=== PATIENT | female | born 1975 | race African-American/Black ===

== ENCOUNTER 2016-11-17 14:11 | Emergency (ER) | payer MEDICAID ==
[~2016-11-17] VITALS: Ht 167.6 cm; Wt 77.0 kg
[~2016-11-17 14:11] MED LIST: ALBU2.5V13 NEB; Acyclovir PO; DEXTL PO; LEVO500T15 PO; METH4TAB17 PO
[2016-11-17 18:25] VITALS: BP 116/72
== END 2016-11-17 18:43 | disposition home or self-care (01) ==
LOC: ER 18:03
DX: B00.1 Herpesviral vesicular dermatitis (principal); B00.9 Herpesviral infection, unspecified; K13.0 Diseases of lips; J45.909 Unspecified asthma, uncomplicated; M19.90 Unspecified osteoarthritis, unspecified site; Z79.899 Other long term (current) drug therapy
CPT/HCPCS: 99283

== ENCOUNTER 2017-02-27 12:47 | Emergency (ER) | payer MEDICAID ==
[~2017-02-27] VITALS: Ht 154.9 cm; Wt 81.0 kg
[2017-02-27 17:33] LABS: CLARITY URINE CLEAR (CLEAR); COLOR URINE YELLOW (YELLOW); GLUCOSE URINE NEGATIVE (NEGATIVE); KETONES URINE NEGATIVE (NEGATIVE); LEUKOCYTE ESTERASE URINE NEGATIVE (NEGATIVE); NITRITE URINE NEGATIVE (NEGATIVE); OCCULT BLOOD URINE NEGATIVE (NEGATIVE); PROTEIN URINE NEGATIVE (NEGATIVE)
[2017-02-27] MEDS ORDERED: HYDROCODONE/APAP 7.5/325MG 1 TAB TABLET PO ONE (18:00)
[2017-02-27 18:03] LABS: HEMATOCRIT. 40.5 % (36.0-48.0); HEMOGLOBIN. 13.5 g/dL (12.0-16.0); MEAN CORPUSCULAR HEMOGLOBIN 30.2 pg (28.0-32.0); MEAN CORPUSCULAR VOLUME 90.8 fL (81.0-99.0); MEAN PLATELET VOLUME 8.5 fl (7.4-10.4); PLATELET 251 x1000/uL (130-400); RED BLOOD CELL COUNT 4.46 mill/uL (4.2-5.4); RED CELL DISTRIBUTION WIDTH 15.6 % (11.6-14.6)
[2017-02-27 18:08] LABS: CHLORIDE 104 mEq/L (98-107)
[2017-02-27 18:15] LABS: CARBON DIOXIDE 27 mEq/L (21-32)
[2017-02-27 18:51] LABS: PLATELET ESTIMATE NORMAL
[2017-02-27 20:26] VITALS: BP 110/62
== END 2017-02-27 20:26 | disposition home or self-care (01) ==
LOC: ER 17:10
DX: M54.12 Radiculopathy, cervical region (principal); R60.9 Edema, unspecified; M19.90 Unspecified osteoarthritis, unspecified site; J45.909 Unspecified asthma, uncomplicated; G89.29 Other chronic pain; Z88.2 Allergy status to sulfonamides
CPT/HCPCS: 36415; 72040; 80053; 81003; 81025; 83690; 85025; 93005; 99285; Z7610

== ENCOUNTER 2017-12-21 13:13 | Emergency (ER) | payer MEDICAID ==
[~2017-12-21] VITALS: Ht 154.9 cm; Wt 79.0 kg
[~2017-12-21 13:13] MED LIST changes: -LEVO500T15 PO; +LEVO500T2 PO
[2017-12-21 13:58] VITALS: BP 125/77
[2017-12-21] MEDS ORDERED: IPRATROPIUM BROMIDE (0.02%) 0.5MG/2.5ML NEB HHN STA (14:40)
[2017-12-21] MEDS ORDERED: ALBUTEROL (0.083%) 2.5MG/3ML NEB HHN STA ×2 (14:40→16:22)
[2017-12-21] MEDS ORDERED: PREDNISONE 20MG TABLET PO STA (14:40)
[2017-12-21] MEDS ORDERED: ALBUTEROL (0.083%) 2.5MG/3ML NEB ONE (16:39)
== END 2017-12-21 18:58 | disposition home or self-care (01) ==
LOC: ER 14:23
DX: J45.901 Unspecified asthma with (acute) exacerbation (principal); Z88.2 Allergy status to sulfonamides
CPT/HCPCS: 71045; 81025; 94640; 99284; J7512; J7611

== ENCOUNTER 2018-10-13 12:50 | Emergency (ER) | payer MEDICAID ==
[~2018-10-13] VITALS: Ht 154.9 cm; Wt 74.0 kg
[2018-10-13 19:27] VITALS: BP 140/74
[2018-10-13] MEDS ORDERED: ACETAMINOPHEN 325MG TABLET PO ONE (19:30)
== END 2018-10-13 19:39 | disposition home or self-care (01) ==
LOC: ER 13:15
DX: J18.9 Pneumonia, unspecified organism (principal); J45.909 Unspecified asthma, uncomplicated; Z88.2 Allergy status to sulfonamides; Z79.899 Other long term (current) drug therapy
CPT/HCPCS: 71045; 81025; 99283

== ENCOUNTER 2018-10-14 10:22 | Inpatient (IN) | payer MEDICAID ==
[~2018-10-14] VITALS: Ht 154.9 cm; Wt 73.9 kg
[2018-10-14] MEDS ORDERED: ALBUTEROL (0.083%) 2.5MG/3ML NEB HHN STA (11:11)
[2018-10-14] MEDS ORDERED: KETOROLAC 60MG/2ML VIAL IM STA (11:11)
[2018-10-14] MEDS ORDERED: IPRATROPIUM BROMIDE (0.02%) 0.5MG/2.5ML NEB HHN STA (11:11)
[2018-10-14] MEDS ORDERED: METHYLPREDNISOLONE SOD SUCC 125 MG/2 ML VIAL IM STA (11:11)
[2018-10-14] MEDS ORDERED: CEFTRIAXONE SODIUM 1 G/VIAL IM ONE (11:15)
[2018-10-14] MEDS ORDERED: LIDOCAINE HCL 1% 20ML VIAL (Pyxis) INJ INFIL ONE (11:15)
[2018-10-14 12:08] LABS: CLARITY URINE CLOUDY (CLEAR); COLOR URINE YELLOW (YELLOW); KETONES URINE TRACE (NEGATIVE); LEUKOCYTE ESTERASE URINE NEGATIVE (NEGATIVE); NITRITE URINE NEGATIVE (NEGATIVE); OCCULT BLOOD URINE NEGATIVE (NEGATIVE); PROTEIN URINE TRACE (NEGATIVE); SPECIFIC GRAVITY URINE 1.031 (1.005-1.030)
[2018-10-14 13:30] LABS: BASOPHILS % 0.4 % (0.0-2.0); CHLORIDE 111 mEq/L (98-107); EOSINOPHILS % 0.3 % (0.0-5.0); HEMATOCRIT. 39.3 % (36.0-48.0); HEMOGLOBIN. 12.9 g/dL (12.0-16.0); LYMPHOCYTES % 9.1 % (20.0-50.0); MEAN CORPUSCULAR HEMOGLOBIN 30.3 pg (28.0-32.0); MEAN CORPUSCULAR VOLUME 92.1 fL (81.0-99.0); MEAN PLATELET VOLUME 8.6 fl (7.4-10.4); MONOCYTES % 5.6 % (2.0-8.0); NEUTROPHILS % 84.6 % (40.0-76.0); PLATELET 225 x1000/uL (130-400); RED BLOOD CELL COUNT 4.27 mill/uL (4.2-5.4); RED CELL DISTRIBUTION WIDTH 14.3 % (11.6-14.6)
[2018-10-14] MEDS ORDERED: AZITHROMYCIN 500 MG in DEXT 5% WATER 250 ML IV SCH (15:15)
[2018-10-14] MEDS ORDERED: POTASSIUM CHLORIDE 20MEQ TABLET SR PO ONE (16:30)
[2018-10-14 16:55] LABS: PARTIAL THROMBOPLASTIN TIME 25.8 sec (23.4-31.0)
[2018-10-14] MEDS ORDERED: IPRATROPIUM BROMIDE (0.02%) 0.5MG/2.5ML NEB HHN NR (20:15)
[2018-10-14] MEDS ORDERED: ALBUTEROL (0.083%) 2.5MG/3ML NEB HHN SCH (20:15)
[2018-10-15] MEDS ORDERED: GABA-290 PO (08:46)
[2018-10-15] MEDS ORDERED: METH2.5T PO (08:46)
[2018-10-15] MEDS ORDERED: HYDR-4009 PO (08:51)
[2018-10-15] MEDS ORDERED: PRED5TAB PO (08:51)
[2018-10-15 09:00] VITALS: BP 124/69
[2018-10-15] MEDS ORDERED: ACETAMINOPHEN 325MG TABLET PO PRN (09:15)
[2018-10-15] MEDS ORDERED: ONDANSETRON HCL 4MG/2ML INJ IV PRN (09:15)
[2018-10-15] MEDS: GUAIFENESIN 600MG ER TABLET PO SCH ×2 (09:48→20:33)
[2018-10-15] MEDS: CEFTRIAXONE 1 G PREMIX 50 ML IV SCH (11:36)
[2018-10-15 11:48] LABS: *AMPHETAMINES SCREEN URINE NEGATIVE (NEGATIVE)
[2018-10-15 11:49] LABS: *BARBITURATES SCREEN URINE NEGATIVE (NEGATIVE); *BENZODIAZEPINES SCREEN URINE NEGATIVE (NEGATIVE); *COCAINE SCREEN URINE NEGATIVE (NEGATIVE); METHADONE URINE SCREEN NEGATIVE (NEGATIVE); OPIATES URINE SCREEN NEGATIVE (NEGATIVE); PHENCYCLIDINE URINE SCREEN NEGATIVE (NEGATIVE)
[2018-10-15 12:00] VITALS: BP 128/80
[2018-10-15 12:06] LABS: CANNABINOID URINE SCREEN PRESUMTIVE POSITIVE (NEGATIVE)
[2018-10-15] MEDS: GUAIFENESIN-DM 200MG-20MG/10ML UDC PO PRN ×3 (12:38→18:26)
[2018-10-15 16:00] VITALS: BP 139/55
[2018-10-15] MEDS: BUDESONIDE 0.5MG/2ML NEB HHN SCH ×2 (16:57→20:51)
[2018-10-15] MEDS: IPRATROPIUM/ALBUTEROL 0.5-3(2.5)MG/3ML NEB HHN PRN ×2 (16:57→20:51)
[2018-10-15 19:58] VITALS: BP 104/66
[2018-10-15] MEDS: GABAPENTIN 300MG CAPSULE PO SCH (20:33)
[2018-10-15] MEDS ORDERED: MEDICATION NOT ON FORMULARY EA (Gabapentin 600 MG) PO SCH (21:00)
[2018-10-16] VITALS: BP 97/51
[2018-10-16 04:00] VITALS: BP 101/60
[2018-10-16 05:47] LABS: BASOPHILS % 0.5 % (0.0-2.0); EOSINOPHILS % 0.2 % (0.0-5.0); HEMATOCRIT. 36.3 % (36.0-48.0); LYMPHOCYTES % 19.3 % (20.0-50.0); MEAN CORPUSCULAR HEMOGLOBIN 30.5 pg (28.0-32.0); MEAN PLATELET VOLUME 8.2 fl (7.4-10.4); MONOCYTES % 7.8 % (2.0-8.0); NEUTROPHILS % 72.2 % (40.0-76.0); PLATELET 238 x1000/uL (130-400); RED BLOOD CELL COUNT 3.95 mill/uL (4.2-5.4); RED CELL DISTRIBUTION WIDTH 14.4 % (11.6-14.6)
[2018-10-16 06:49] LABS: CHLORIDE 108 mEq/L (98-107)
[2018-10-16 08:00] VITALS: BP 107/71
[2018-10-16] MEDS: GUAIFENESIN 600MG ER TABLET PO SCH ×2 (08:57→21:56)
[2018-10-16] MEDS ORDERED: METHOTREXATE SODIUM 2.5 MG PO SCH (09:00)
[2018-10-16] MEDS: GUAIFENESIN-DM 200MG-20MG/10ML UDC PO PRN (09:08)
[2018-10-16] MEDS: BUDESONIDE 0.5MG/2ML NEB HHN SCH ×2 (09:59→21:07)
[2018-10-16] MEDS: IPRATROPIUM/ALBUTEROL 0.5-3(2.5)MG/3ML NEB HHN PRN ×3 (09:59→15:40)
[2018-10-16] MEDS: CEFTRIAXONE 1 G PREMIX 50 ML IV SCH (10:12)
[2018-10-16 12:00] VITALS: BP 96/54
[2018-10-16 16:00] VITALS: BP 100/66
[2018-10-16 20:00] VITALS: BP 101/64
[2018-10-16] MEDS: GABAPENTIN 300MG CAPSULE PO SCH (21:56)
[2018-10-17] VITALS: BP 105/68
[2018-10-17 04:00] VITALS: BP 97/67
[2018-10-17] MEDS: BUDESONIDE 0.5MG/2ML NEB HHN SCH (07:59)
[2018-10-17 08:00] VITALS: BP 108/69
[2018-10-17] MEDS: GUAIFENESIN 600MG ER TABLET PO SCH (09:04)
[2018-10-17] MEDS: CEFTRIAXONE 1 G PREMIX 50 ML IV SCH (10:07)
[2018-10-17 11:23] VITALS: BP 108/69
[2018-10-18] MEDS ORDERED: METHOTREXATE SODIUM 2 . 5MG TABLET PO SCH (09:00)
[2018-10-18] MEDS ORDERED: PREDNISONE 5MG TABLET PO SCH (09:00)
== END 2018-10-17 12:46 | disposition home or self-care (01) | DRG 139 ==
LOC: ER 10:37 → 7WST 16:21 → ENRESERV 10-15 07:22
PROVIDERS: ADMIT Internal Medicine; ATTEND Internal Medicine
DX: J18.9 Pneumonia, unspecified organism (principal); E44.1 Mild protein-calorie malnutrition; E87.8 Other disorders of electrolyte and fluid balance, not elsewhere classified; M06.9 Rheumatoid arthritis, unspecified; E87.6 Hypokalemia; E66.9 Obesity, unspecified; J45.909 Unspecified asthma, uncomplicated; F12.90 Cannabis use, unspecified, uncomplicated; Z88.2 Allergy status to sulfonamides; Z79.2 Long term (current) use of antibiotics; Z79.899 Other long term (current) drug therapy; Z71.3 Dietary counseling and surveillance; Z68.30 Body mass index [BMI] 30.0-30.9, adult
CPT/HCPCS: 36415; 71045; 80048; 80305; 93970; 94640; 96365; 96372; 99285; J0456; J0696; J1885; J2930; J3490; J7050; J7060; J7611; J7620; J7626; J8610

== ENCOUNTER 2019-09-05 13:37 | Emergency (ER) | payer MEDICAID ==
[~2019-09-05] VITALS: Ht 170.2 cm; Wt 74.0 kg
[~2019-09-05 13:37] MED LIST changes: -Acyclovir PO; +GABA-290 PO; +HYDR-4009 PO; -LEVO500T2 PO; +METH2.5T PO; -METH4TAB17 PO
[2019-09-05 14:10] VITALS: BP 133/77
== END 2019-09-05 18:57 | disposition home or self-care (01) ==
LOC: ER 13:37
DX: S02.632A Fracture of coronoid process of left mandible, initial encounter for closed fracture (principal); S02.642A Fracture of ramus of left mandible, initial encounter for closed fracture; S02.601A Fracture of unspecified part of body of right mandible, initial encounter for closed fracture; Y04.2XXA Assault by strike against or bumped into by another person, initial encounter; Y93.89 Activity, other specified; Y92.89 Other specified places as the place of occurrence of the external cause
CPT/HCPCS: 70486; 81025; 99284

== ENCOUNTER 2024-03-18 10:06 | Emergency (ER) | payer MEDICAID ==
[~2024-03-18] VITALS: Ht 162.6 cm; Wt 84.0 kg
[2024-03-18 10:17] VITALS: BP 140/75; PULSE 65; RESP 20; TEMP 97.8; O2SAT 100
[2024-03-18] MEDS: HYDROXYZINE 25MG TABLET PO ONE (11:30)
[2024-03-18] MEDS: FAMOTIDINE 20MG TABLET PO ONE (11:30)
[2024-03-18] MEDS ORDERED: HYDR-3735 MT (11:33)
[2024-03-18] MEDS ORDERED: FAMO-135 MT (11:33)
== END 2024-03-18 12:46 | disposition home or self-care (01) ==
LOC: ER 10:06
DX: L50.9 Urticaria, unspecified (principal); J45.909 Unspecified asthma, uncomplicated; Z88.2 Allergy status to sulfonamides
CPT/HCPCS: 99283